=== PATIENT | female | born 1940 | race Caucasian/White ===

== ENCOUNTER 2022-07-10 18:38 | Inpatient (IN) | payer MEDICARE ==
[~2022-07-10] VITALS: Ht 147.3 cm; Wt 68.0 kg
[2022-07-10] MEDS ORDERED: SODIUM CHLORIDE 0.9% 1000ML 1,000 ML IV STA (18:45)
[2022-07-10 20:00] VITALS: BP 143/77; PULSE 76; RESP 16; TEMP 97.5; O2SAT 99
[2022-07-10 20:09] LABS: BASOPHILS % 0.6 % (0.0-1.0); EOSINOPHILS % 0.1 % (0.0-6.0); HEMATOCRIT 37.2 % (34.2-44.1); HEMOGLOBIN 13.2 g/dL (12.0-16.0); LYMPHOCYTES # (AUTO) 2.1 (1.0-3.2); LYMPHOCYTES % 30.8 % (18.0-39.1); MEAN CORPUSCULAR HEMOGLOBIN 30.8 pg (28-32); MEAN CORPUSCULAR HGB CONC 35.5 g/dL (31-35); MEAN CORPUSCULAR VOLUME 86.9 fL (81-99); MONOCYTES # (AUTO) 0.5 (0.2-0.8); MONOCYTES % 7.9 % (4.4-11.3); NEUTROPHILS # (AUTO) 4.1 (2.1-6.9); NEUTROPHILS % 60.3 % (38.7-80.0); PLATELET COUNT 360 x10e3/uL (140-360); RED BLOOD COUNT 4.28 x10e6/uL (3.6-5.1); RED CELL DISTRIBUTION WIDTH 11.8 % (11.7-14.4)
[2022-07-10 20:13] LABS: CLARITY,URINE CLEAR (CLEAR); COLOR,URINE YELLOW (YELLOW); KETONES,URINE 1+ (NEGATIVE); LEUKOCYTE ESTERASE ,URINE NEGATIVE (NEGATIVE); NITRITE,URINE NEGATIVE (NEGATIVE); PROTEIN,URINE DIPSTICK NEGATIVE (NEGATIVE); URINE UROBILINOGEN 0.2 mg/dL (0.2 - 1)
[2022-07-10 20:17] LABS: AMPHETAMINES SCREEN,URINE NEGATIVE (NEGATIVE); BENZODIAZEPINES SCREEN,URINE POSITIVE (NEGATIVE); PHENCYCLIDINE SCREEN,URINE NEGATIVE (NEGATIVE)
[2022-07-10 20:25] LABS: BACTERIA,URINE RARE /HPF
[2022-07-10 20:28] LABS: ALBUMIN 4.1 g/dL (3.5-5.0); ALBUMIN/GLOBULIN RATIO 1.3 (0.8-2.0); ANION GAP 15.2 mmol/L (8-16); CALCIUM 9.1 mg/dL (8.4-10.2); CREATININE, SERUM 0.76 mg/dL (0.57-1.11); POTASSIUM 3.2 mmol/L (3.5-5.1)
[2022-07-10 20:34] LABS: CREATINE KINASE MB 4.8 ng/mL (0-5.0)
[2022-07-10] MEDS ORDERED: ACETAMINOPHEN 325 MG TAB PO STA (21:00)
[2022-07-10] MEDS: SODIUM CHLORIDE 0.9% 1000ML 1,000 ML IV SCH ×2 (22:04→23:54)
[2022-07-10 23:02] LABS: CREATINE KINASE MB 4.6 ng/mL (0-5.0)
[2022-07-10] MEDS ORDERED: TIZANIDINE HCL4 M1 PO (23:39)
[2022-07-10] MEDS ORDERED: FLONASE ALLERG9.9 ML INH (23:39)
[2022-07-10] MEDS ORDERED: TRIAMTERENE-HC1 EAC2 (23:39)
[2022-07-10] MEDS ORDERED: HYDROCODON-ACE1 EAC9 (23:39)
[2022-07-11] VITALS (8 sets, daily range): BP systolic 135–172; BP diastolic 66–89; PULSE 74–80; RESP 16–20; TEMP 97.5–98.8; O2SAT 99–100
[2022-07-11] MEDS ORDERED: TEMAZEPAM 15 MG CAP PO PRN (00:15)
[2022-07-11] MEDS: ACETAMINOPHEN 325 MG TAB PO PRN ×4 (01:40→20:44)
[2022-07-11 04:40] LABS: BASOPHILS % 0.5 % (0.0-1.0); EOSINOPHILS % 0.3 % (0.0-6.0); HEMATOCRIT 33.8 % (34.2-44.1); LYMPHOCYTES % 32.5 % (18.0-39.1); MEAN CORPUSCULAR HEMOGLOBIN 30.9 pg (28-32); MEAN CORPUSCULAR HGB CONC 35.5 g/dL (31-35); MEAN CORPUSCULAR VOLUME 87.1 fL (81-99); MONOCYTES # (AUTO) 0.7 (0.2-0.8); MONOCYTES % 11.5 % (4.4-11.3); NEUTROPHILS # (AUTO) 3.4 (2.1-6.9); PLATELET COUNT 300 x10e3/uL (140-360); RED BLOOD COUNT 3.88 x10e6/uL (3.6-5.1); RED CELL DISTRIBUTION WIDTH 11.7 % (11.7-14.4)
[2022-07-11 05:04] LABS: ALBUMIN 3.6 g/dL (3.5-5.0); ALBUMIN/GLOBULIN RATIO 1.3 (0.8-2.0); CALCIUM 8.8 mg/dL (8.4-10.2); CREATININE, SERUM 0.72 mg/dL (0.57-1.11)
[2022-07-11] MEDS: SODIUM CHLORIDE 0.9% 1000ML 1,000 ML IV SCH ×2 (07:47→14:06)
[2022-07-11] MEDS ORDERED: ONDANSETRON HCL INJ 2MG/ML 2ML 2 MG/ML VIAL IV PRN (11:15)
[2022-07-11] MEDS ORDERED: NON-FORMULARY MEDICATION (Fluticasone Propionate* (Flonase Allergy Relief*) 1 EACH) INH PRN (11:15)
[2022-07-11] MEDS ORDERED: FLUTICASONE PROPIONATE NASAL SPRAY NS PRN (11:45)
[2022-07-11] MEDS ORDERED: POTASSIUM CHLORIDE 10MEQ EA PO ONE (11:45)
[2022-07-11] MEDS ORDERED: CLONIDINE HCL 0.1 MG TAB PO PRN (12:30)
[2022-07-11] MEDS: LOSARTAN POTASSIUM 25 MG TAB PO SCH (12:32)
[2022-07-11 14:24] LABS: CREATINE KINASE MB 5.4 ng/mL (0-5.0)
[2022-07-12 00:34] VITALS: BP 133/57; PULSE 67; RESP 17; TEMP 97.8; O2SAT 99
[2022-07-12] MEDS: ACETAMINOPHEN 325 MG TAB PO PRN ×2 (03:13→09:23)
[2022-07-12 04:00] VITALS: BP 157/76; PULSE 82; RESP 17; TEMP 97.7; O2SAT 100
[2022-07-12 05:01] LABS: BASOPHILS % 0.6 % (0.0-1.0); EOSINOPHILS % 0.2 % (0.0-6.0); HEMATOCRIT 34.1 % (34.2-44.1); HEMOGLOBIN 11.8 g/dL (12.0-16.0); LYMPHOCYTES # (AUTO) 1.5 (1.0-3.2); LYMPHOCYTES % 23.1 % (18.0-39.1); MEAN CORPUSCULAR HEMOGLOBIN 30.6 pg (28-32); MEAN CORPUSCULAR HGB CONC 34.6 g/dL (31-35); MEAN CORPUSCULAR VOLUME 88.3 fL (81-99); MONOCYTES # (AUTO) 0.8 (0.2-0.8); MONOCYTES % 11.8 % (4.4-11.3); NEUTROPHILS # (AUTO) 4.1 (2.1-6.9); NEUTROPHILS % 64.1 % (38.7-80.0); PLATELET COUNT 318 x10e3/uL (140-360); RED BLOOD COUNT 3.86 x10e6/uL (3.6-5.1); RED CELL DISTRIBUTION WIDTH 12.1 % (11.7-14.4)
[2022-07-12 05:19] LABS: ANION GAP 11.1 mmol/L (8-16); CALCIUM 8.6 mg/dL (8.4-10.2); CREATININE, SERUM 0.67 mg/dL (0.57-1.11); POTASSIUM 3.1 mmol/L (3.5-5.1)
[2022-07-12] MEDS: SODIUM CHLORIDE 0.9% 1000ML 1,000 ML IV SCH (06:41)
[2022-07-12 08:30] VITALS: BP 160/83; PULSE 80; RESP 16; TEMP 98.3; O2SAT 98
[2022-07-12] MEDS: LOSARTAN POTASSIUM 25 MG TAB PO SCH (08:35)
[2022-07-12 09:43] VITALS: BP 160/83; PULSE 80; RESP 16; TEMP 98.3; O2SAT 98
[2022-07-12] MEDS ORDERED: POTASSIUM CHLORIDE 10MEQ EA PO ONE (11:30)
[2022-07-12] MEDS ORDERED: ONDANSETRON HCL 4 MG ORAL DISINTEGRATING TAB PO PRN (11:45)
== END 2022-07-12 11:25 | disposition home or self-care (01) | DRG 641 ==
LOC: ER 21:00 → ERHOLD 21:01 → MED/SURG 23:08
PROVIDERS: ADMIT Internal Medicine; ATTEND Internal Medicine
DX: E86.0 Dehydration (principal); E87.1 Hypo-osmolality and hyponatremia; I10 Essential (primary) hypertension; F41.9 Anxiety disorder, unspecified; E87.6 Hypokalemia; M54.9 Dorsalgia, unspecified; G89.29 Other chronic pain; K44.9 Diaphragmatic hernia without obstruction or gangrene; G47.00 Insomnia, unspecified; Z20.822 Contact with and (suspected) exposure to COVID-19
CPT/HCPCS: 36415; 70450; 71045; 80048; 80053; 80307; 81001; 82550; 82553; 83690; 83735; 84484; 85025; 93005; 99284; J7030